=== PATIENT | male | born 1975 | race Hispanic/Latino ===

== ENCOUNTER 2017-11-18 08:33 | Observation (INO) | payer OTHER ==
[2017-11-16 13:19] LABS: BASOPHILS # (AUTO) 0.1 (0.0-0.1); BASOPHILS % 0.5 % (0.0-1.0); HEMATOCRIT 44.9 % (38.2-49.6); HEMOGLOBIN 16.3 g/dL (14.0-18.0); LYMPHOCYTES # (AUTO) 0.9 (1.0-3.2); LYMPHOCYTES % 8.9 % (18.0-39.1); MEAN CORPUSCULAR HEMOGLOBIN 31.7 pg (28-32); MEAN CORPUSCULAR HGB CONC 36.3 g/dL (31-35); MEAN CORPUSCULAR VOLUME 87.2 fL (81-99); MONOCYTES # (AUTO) 0.4 (0.2-0.8); MONOCYTES % 3.9 % (4.4-11.3); NEUTROPHILS # (AUTO) 8.4 (2.1-6.9); NEUTROPHILS % 85.4 % (38.7-80.0); PLATELET COUNT 238 x10e3/uL (140-360); RED BLOOD COUNT 5.15 x10e6/uL (4.3-5.7); RED CELL DISTRIBUTION WIDTH 11.8 % (11.7-14.4)
[2017-11-16 13:32] LABS: INR 1.13; PROTHROMBIN TIME 13.6 seconds (11.9-14.5)
[2017-11-16 13:33] LABS: PARTIAL THROMBOPLASTIN TIME 27.2 seconds (23.8-35.5)
[2017-11-16 13:40] LABS: ANION GAP 14.9 mmol/L (8-16); BLOOD UREA NITROGEN 17 mg/dL (7-26); BUN/CREATININE RATIO 16 (6-25); CALCIUM 10.2 mg/dL (8.4-10.2); CARBON DIOXIDE 28 mmol/L (22-29); CHLORIDE 99 mmol/L (98-107); CREATININE, SERUM 1.05 mg/dL (0.72-1.25); EST GLOMERULAR FILTRATION RATE > 60 ML/MIN (60-); GLUCOSE 110 mg/dL (74-118); POTASSIUM 3.9 mmol/L (3.5-5.1); SODIUM 138 mmol/L (136-145)
--- NOTE | 2017-11-16 13:56 | Diagnostic Imaging Report ---
PROCEDURE: X-RAY CHEST, TWO VIEWS COMPARISON: None. INDICATIONS: PRE OP BACK SURGERY FINDINGS: LUNGS: No consolidations or edema. PLEURA: No effusions or pneumothorax. HEART \T\ MEDIASTINUM: The heart is within normal size-limits. BONES \T\ SOFT TISSUES: No acute findings. CONCLUSION: No acute thoracic abnormality. Dictated by: Junaid Bates M.D. on 11/16/2017 at 13:59 Electronically approved by: Junaid Bates M.D. on 11/16/2017 at 13:59
[~2017-11-18] VITALS: Ht 182.9 cm; Wt 98.0 kg
[~2017-11-18 08:33] MED LIST: ACETAMINOPHEN 1000 MG/100 ML 100 ML IV ONE; ALFUZOSIN HCL10 MG PO; ALIGN4 MG PO; ALLEGRA180 MG PO; BACITRACIN 50,000 UNIT VIAL ONE; BENADRYL25 M1 PO; BUPIVACAINE 0.5%/EPI 30 ML SDV INJ ONE; CINNAMON500 MG PO; DICYCLOMINE HCL20 MG PO; FAMOTIDINE20 MG PO; FLOMAX0.4 MG PO; FLUTICASONE; GLUCOSAMIN PO; GLUCOSAMINE PO; LANSOPRAZOLE30 MG PO; LIDOCAINE HCL (LTA) 4 ML SOLN ONE; LISINOPRIL PO; LOSARTAN PO; LOSARTAN-HCTZ1 EACH PO; METOCLOPRAMIDE H5 MG PO; OMEPRAZOLE40 MG PO; ONDANSETRON HCL8 MG PO; PROMETHAZINE PO; SUCRALFATE1 GM PO; THROMBIN FOR SOLN 5,000 UNIT VIAL ONE
[2017-11-18] MEDS ORDERED: PREDNISONE20 MG PO (09:10)
[2017-11-18] MEDS ORDERED: TYLENOL #4 PO (09:10)
[2017-11-18] MEDS ORDERED: CYCLOBENZAPRINE10 MG PO (09:10)
[2017-11-18] MEDS ORDERED: CEFAZOLIN SOD 1 GM VIAL ONE (09:13)
[2017-11-18] MEDS ORDERED: GELATIN SPONGE SZ 100 ONE (11:03)
[2017-11-18] MEDS ORDERED: LACTATED RINGER'S 1,000 ML IV SCH (12:18)
[2017-11-18 12:25] VITALS: BP 129/79
[2017-11-18 12:30] VITALS: BP 129/79
[2017-11-18] MEDS ORDERED: MORPHINE SULFATE 5 MG/ML VIAL IM PRN (12:30)
[2017-11-18] MEDS ORDERED: MAGNESIUM/ALUMINUM/SIMETHICONE 30 ML UDC PO PRN (12:30)
[2017-11-18] MEDS ORDERED: ZOLPIDEM TARTRATE 5 MG TAB PO PRN (12:30)
[2017-11-18] MEDS ORDERED: ACETAMINOPHEN 325 MG TAB PO PRN (12:30)
[2017-11-18] MEDS ORDERED: ONDANSETRON HCL INJ 2 MG/ML VIAL IV PRN (12:30)
[2017-11-18] MEDS ORDERED: PROMETHAZINE HCL (IM) 25 MG/ML VIAL IM PRN (12:30)
[2017-11-18] MEDS ORDERED: CYCLOBENZAPRINE HCL 10 MG TAB PO PRN (12:30)
[2017-11-18] MEDS ORDERED: HYDROMORPHONE 2MG/ML INJ IV PRN (12:30)
[2017-11-18] MEDS ORDERED: FENTANYL CITRATE/PF 100MCG/2 ML INJ ONE ×2 (12:39→19:25)
--- NOTE | 2017-11-18 13:04 | Operative Report ---
DATE OF PROCEDURE: November 18, 2017 PREOPERATIVE DIAGNOSIS: Right L4-L5 foraminal disk herniation with radiculopathy, M51.16. POSTOPERATIVE DIAGNOSIS: Right L4-L5 foraminal disk herniation with radiculopathy, M51.16. PROCEDURE: Right L4-5 lateral foraminotomy and microsurgical diskectomy, [id number]. ANESTHESIA: General. INDICATIONS: Patient is a 42-year-old man who presents with right L4-L5 intraforaminal disk herniation with right L4 radiculopathy. He was taken to the operating room for microsurgical diskectomy through a lateral approach. PROCEDURE: After induction of general anesthesia, the patient was placed on the operating table in prone position over a Eddy frame. Lumbar region was prepped and draped in a sterile fashion. A preoperative x-ray was obtained. A small paramedian incision was created. Lumbar fascia was opened to the right of midline, and subperiosteal dissection was carried out to expose the lateral aspect of the L4 lamina and the lateral margin of the pars interarticularis of L4. Another x-ray confirmed correct localization with a probe placed under the L4 pedicle. The operating microscope was brought in. Retraction was maintained with an Aesculap speculum retractor. Under the microscope, a 4-mm daryl bur was used to drill the lateral margin of the pars interarticularis of L4 and the superolateral margin of the inferior articular process of L4. The lateral extension of the ligamentum flavum into the L4 neural foramen was resected, and the L4 nerve root was exposed under the L4 pedicle. The herniated disk material immediately came into view under the L4 nerve root. This was mobilized with a micro-ball probe and grasped with a micro-pituitary rongeur and delivered out as multiple fragments of disk until the L4 nerve root was completely decompressed. Meticulous hemostasis was secured. Retractor was removed. The lumbar fascia was closed with #0 Vicryl sutures. Subcutaneous layer was closed with 2-0 Vicryl sutures. The skin was closed with 3-0 Monocryl sutures in subcuticular fashion. Steri-Strips and dressing were applied. The patient was awakened, extubated and taken to post anesthesia care unit in stable condition. No intraoperative complications were encountered. Estimated blood loss was 10 mL. Job#: [id number]
[2017-11-18] MEDS: HYDROMORPHONE 1MG/1ML INJ IV PRN ×2 (13:50→20:13)
[2017-11-18] MEDS ORDERED: CEFAZOLIN SOD 1 GM/NS 50ML 50 ML IV SCH (14:00)
[2017-11-18] MEDS ORDERED: ROCURONIUM BROMIDE 10 MG/ML 5ML VIAL ONE (14:58)
[2017-11-18] MEDS ORDERED: PROPOFOL IV EMULSION 10 MG/ML 20 ML VIAL ONE (14:58)
[2017-11-18] MEDS ORDERED: NEOSTIGMINE 5 MG/5ML SYR ONE (14:58)
[2017-11-18] MEDS ORDERED: SEVOFLURANE INHAL SOLN 250 ML PEN BTL ONE (14:58)
[2017-11-18] MEDS ORDERED: GLYCOPYRROLATE INJ 1MG/ 5 ML SYR ONE (14:58)
[2017-11-18] MEDS ORDERED: ONDANSETRON HCL INJ 2 MG/ML VIAL ONE (14:58)
[2017-11-18] MEDS ORDERED: DEXAMETHASONE SOD PHOS INJ 4 MG/ML VIAL ONE (14:58)
[2017-11-18] MEDS ORDERED: LIDOCAINE HCL 2% LOCAL INJ 5 ML SDV VIAL INJ ONE (14:58)
[2017-11-18 15:31] VITALS: BP 134/79
[2017-11-18 15:50] VITALS: BP 129/79
[2017-11-18] MEDS: PREDNISONE 20 MG TAB PO SCH (16:52)
[2017-11-18] MEDS: CEFAZOLIN SOD 1 GM VIAL IV SCH (16:52)
[2017-11-18] MEDS ORDERED: MIDAZOLAM HCL 2 MG/2 ML VIAL ONE (19:25)
[2017-11-18 20:00] VITALS: BP 135/66
[2017-11-18] MEDS: CARISOPRODOL 350 MG TAB PO PRN (20:10)
[2017-11-18] MEDS: OXYCODONE/ACETAMINOPHEN 5-325 1 EACH TABLET PO PRN (20:13)
[2017-11-19] VITALS: BP 121/59
[2017-11-19] MEDS: OXYCODONE/ACETAMINOPHEN 5-325 1 EACH TABLET PO PRN ×3 (00:28→12:07)
[2017-11-19] MEDS: CARISOPRODOL 350 MG TAB PO PRN ×2 (00:28→06:39)
[2017-11-19] MEDS: CEFAZOLIN SOD 1 GM VIAL IV SCH ×2 (01:50→08:54)
[2017-11-19] MEDS: HYDROMORPHONE 1MG/1ML INJ IV PRN ×2 (01:51→09:12)
[2017-11-19 04:00] VITALS: BP 134/70
[2017-11-19 08:12] VITALS: BP 127/70
[2017-11-19] MEDS: PREDNISONE 20 MG TAB PO SCH (08:55)
[2017-11-19] MEDS ORDERED: LOSARTAN POTASSIUM 100 MG TAB PO SCH (09:00)
[2017-11-19] MEDS ORDERED: FAMOTIDINE 20 MG TAB PO SCH (09:00)
[2017-11-19] MEDS ORDERED: NON-FORMULARY MEDICATION (Alfuzosin Hcl 10 MG) PO SCH ×2 (09:00)
[2017-11-19] MEDS ORDERED: PANTOPRAZOLE SOD 40 MG TABEC PO SCH (09:00)
[2017-11-19] MEDS ORDERED: DIPHENHYDRAMINE HCL 25 MG CAP PO SCH (09:00)
[2017-11-19 12:13] VITALS: BP 129/72
[2017-11-19 12:23] VITALS: BP 120/72
== END 2017-11-19 13:35 | disposition home or self-care (01) ==
LOC: OR 08:33 → PACU V 12:21 → IMCU 13:07
PROVIDERS: ADMIT Neurological Surgery; ATTEND Neurological Surgery
DX: M51.16 Intervertebral disc disorders with radiculopathy, lumbar region (principal); I10 Essential (primary) hypertension; G47.33 Obstructive sleep apnea (adult) (pediatric); K21.9 Gastro-esophageal reflux disease without esophagitis; Z01.810 Encounter for preprocedural cardiovascular examination; Z01.812 Encounter for preprocedural laboratory examination; Z01.818 Encounter for other preprocedural examination; Z79.52 Long term (current) use of systemic steroids
CPT/HCPCS: 36415; 63030; 71046; 72020; 80048; 85025; 85610; 85730; 86850; 86900; 88304; 93005; G0378 ×2; J0690 ×2; J1100; J1170 ×2; J2001; J2250; J2270; J2405 ×2; J3490; S0164

== ENCOUNTER → 2021-11-07 | Day surgery (SDC) | payer OTHER ==
[~2021-11-07] MED LIST changes: -ACETAMINOPHEN 1000 MG/100 ML 100 ML IV ONE; +ACID REDUCER200 MG PO; +ADVAIR 250-501 EACH INH; +ALBUTEROL0.63 MG/3 NEB; +ALLEGRA-D 24 H1 EACH PO; +AMLODIPINE BESY10 MG PO; +AMOXICILLIN PO; -BACITRACIN 50,000 UNIT VIAL ONE; -BUPIVACAINE 0.5%/EPI 30 ML SDV INJ ONE; +CYCLOBENZAPRINE10 MG PO; +DYMISTA NASAL S23 GM INH; +FAMOTIDINE 20 MG/2 ML VIAL IV ONE; +FENOFIBRATE145 MG PO; +FENTANYL CITRATE/PF 100MCG/2 ML INJ ONE; +FLUCONAZOLE100 MG PO; -LIDOCAINE HCL (LTA) 4 ML SOLN ONE; +METOCLOPRAMIDE HCL 10 MG/2ML VIAL ONE; +MIDAZOLAM HCL 2 MG/2 ML VIAL ONE; +MODAFINIL100 MG PO; +MONTELUKAST SOD10 MG PO; +POTASSIUM CHLO20 ME1 PO; +PRAVASTATIN SOD10 MG PO; +PREDNISONE20 MG PO; +PROPOFOL IV EMULSION 10 MG/ML 20 ML VIAL ONE; +RAPAFLO8 MG PO; +TELMISARTAN-HC1 EAC1 PO; -THROMBIN FOR SOLN 5,000 UNIT VIAL ONE; +TYLENOL #4 PO; +VIAGRA50 MG PO
[2021-11-07 12:00] VITALS: BP 110/62
== END | disposition home or self-care (01) ==
LOC: OR 09:12
PROVIDERS: ATTEND Internal Medicine Gastroenterology
DX: K31.7 Polyp of stomach and duodenum (principal); K29.70 Gastritis, unspecified, without bleeding; B37.81 Candidal esophagitis; K20.90 Esophagitis, unspecified without bleeding; K21.9 Gastro-esophageal reflux disease without esophagitis; Z86.010 Personal history of colon polyps; Z71.3 Dietary counseling and surveillance; G47.33 Obstructive sleep apnea (adult) (pediatric); I10 Essential (primary) hypertension; J45.909 Unspecified asthma, uncomplicated; N40.0 Benign prostatic hyperplasia without lower urinary tract symptoms; F41.9 Anxiety disorder, unspecified; Z01.810 Encounter for preprocedural cardiovascular examination; Z20.822 Contact with and (suspected) exposure to COVID-19; Z79.899 Other long term (current) drug therapy; Z68.29 Body mass index [BMI] 29.0-29.9, adult
CPT/HCPCS: 43239; 43251; 93005; C9113; J2250; J2704; J2765; J3010; U0002

== ENCOUNTER → 2022-06-19 | Day surgery (SDC) | payer OTHER ==
[~2022-06-19] MED LIST changes: +DEEP SEA 0.65%; -FAMOTIDINE 20 MG/2 ML VIAL IV ONE; -FENTANYL CITRATE/PF 100MCG/2 ML INJ ONE; +LIDOCAINE HCL 2% LOCAL INJ 5 ML SDV VIAL INJ ONE; -METOCLOPRAMIDE HCL 10 MG/2ML VIAL ONE; -MIDAZOLAM HCL 2 MG/2 ML VIAL ONE; +POVIDONE IODINE 0.05% 0.05 % ML PO ONE; +PROAIR DIGIHAL90 MCG; -PROPOFOL IV EMULSION 10 MG/ML 20 ML VIAL ONE; +PROPOFOL IV EMULSION 50 ML IV ONE
[2022-06-19 10:40] VITALS: BP 112/70
[2022-06-19 10:57] LABS: ALBUMIN 4.3 g/dL (3.5-5.0); ALBUMIN/GLOBULIN RATIO 1.8 (0.8-2.0); ANION GAP 13.9 mmol/L (8-16); CREATININE, SERUM 1.25 mg/dL (0.72-1.25); POTASSIUM 3.9 mmol/L (3.5-5.1)
[2022-06-24 06:12] LABS: ENDOMYSIAL ANTIBODIES, IGA Negative (Negative)
== END | disposition home or self-care (01) ==
LOC: OR 07:35
PROVIDERS: ATTEND Internal Medicine Gastroenterology
DX: K29.50 Unspecified chronic gastritis without bleeding (principal); K31.7 Polyp of stomach and duodenum; R13.10 Dysphagia, unspecified; K21.9 Gastro-esophageal reflux disease without esophagitis; Z86.010 Personal history of colon polyps; R19.7 Diarrhea, unspecified; K62.5 Hemorrhage of anus and rectum; Z71.3 Dietary counseling and surveillance; G47.33 Obstructive sleep apnea (adult) (pediatric); I10 Essential (primary) hypertension; J45.909 Unspecified asthma, uncomplicated; Z01.810 Encounter for preprocedural cardiovascular examination; Z79.899 Other long term (current) drug therapy; Z68.30 Body mass index [BMI] 30.0-30.9, adult
CPT/HCPCS: 36415; 43239; 43450; 80053; 82784; 83516; 86256; 93005; C9113; J2001; J2704

== ENCOUNTER → 2022-07-13 | Outpatient (CLI) | payer OTHER ==
[~2022-07-13] MED LIST changes: -LIDOCAINE HCL 2% LOCAL INJ 5 ML SDV VIAL INJ ONE; -POVIDONE IODINE 0.05% 0.05 % ML PO ONE; -PROPOFOL IV EMULSION 50 ML IV ONE
== END ==
LOC: US 07:44
PROVIDERS: ATTEND Nurse Practitioner
DX: I85.00 Esophageal varices without bleeding (principal)
CPT/HCPCS: 76700